=== PATIENT | female | born 1945 | race Caucasian/White ===

== ENCOUNTER → 2017-03-01 | Outpatient (CLI) | payer OTHER | LOC: FIMAGING 11:49 | DX: Z12.31 Encounter for screening mammogram for malignant neoplasm of breast (principal) | CPT/HCPCS: G0202 ==

== ENCOUNTER → 2017-07-02 | Outpatient (CLI) | payer OTHER | LOC: FIMAGING 08:05 | PROVIDERS: ATTEND Family Medicine Geriatric Medicine | DX: S92.325A Nondisplaced fracture of second metatarsal bone, left foot, initial encounter for closed fracture (principal) ==

== ENCOUNTER 2017-07-28 02:49 | Observation (INO) | payer OTHER ==
[2017-07-28] MEDS ORDERED: MAG HYDROX/AL HYDROX/SIMETH 30 ML UDCUP PO ONE ×2 (03:10→11:09)
[2017-07-28] MEDS ORDERED: LIDOCAINE 2% VISCOUS 15 ML UDCUP PO ONE ×2 (03:10→11:09)
--- NOTE | 2017-07-28 03:10 | EDPHY ---
H & P Time Seen by Provider: 07/28/17 02:52 HPI/ROS: Chief Complaint: Chest pain HPI: A 72-year-old woman woke up at 1:00 this morning with her usual chronic pain in her right foot from her RSD. Patient recalled that she did not take her gabapentin. She took 1800 mg of gabapentin in her metformin which is her usual evening dose. Shortly thereafter that she has developed some sternal chest discomfort. Come out an 8/10. It feels like "heartburn ". She did not take any heartburn medications for this. She does have a history of heartburn in the past. No shortness of breath. No palpitations. No nausea or vomiting. No abdominal pain. Currently the pain is about a 6/10 after nitroglycerin by EMS. Patient did refuse aspirin by EMS stating that she is allergic. Patient she did go swimming this evening after work which is not unusual for her. ROS: 10 point Review of Systems is negative except as noted in the HPI. PMH: Prediabetic, neuropathy, IBS Social History: No smoking, moderate alcohol, no recreational drug use Family History: non-contributory Physical Exam: Gen: Awake, Alert, No Distress HEENT: Nose: no rhinorrhea Eyes: PERRLA, EOMI Mouth: Moist mucosa Neck: Supple, no JVD Chest: Mild parasternal tenderness to palpation reproducing presenting complaint, lungs clear to auscultation Heart: S1, S2 normal, no murmur Abd: Soft, non-tender, no guarding Back: no CVA tenderness, no midline tenderness Ext: no edema, non-tender Skin: no rash Neuro: CN II-XII intact, Sensation grossly intact, Strength 5/5 in bilateral upper and lower extremities - Personal History Tetanus Vaccine Date: 05/04/2012 Constitutional: Initial Vital Signs Temperature (C) 36.5 C 07/28/17 03:03 Heart Rate 64 07/28/17 03:03 Respiratory Rate 16 07/28/17 03:03 Blood Pressure 115/68 07/28/17 03:03 O2 Sat (%) 96 07/28/17 03:03 O2 Delivery Mode Room Air Allergies/Adverse Reactions: amoxicillin [Amoxicillin] Allergy (Mild, Verified 05/01/13 15:09) Rash acetaminophen [From Percocet] Adverse Reaction (Verified 05/01/13 15:09) Abdominal Pain oxycodone HCl [From Percocet] Adverse Reaction (Verified 05/01/13 15:09) Abdominal Pain Medical Decision Making - Diagnostics EKG Interpretation: The ECG time 2:55 a.m., sinus rhythm with a rate of 63, normal axis, normal intervals, no acute ST or T-wave changes. There is a single PVC. ED Course/Re-evaluation: The pain is mildly improved after GI cocktail but has not resolved. Troponin is negative. ECG is negative. Pain is now to out of 10. Given her age in nature discomfort will admit her for serial troponins and chest pain rule out. I have discussed with the hospitalist, Dr.de Hutchins. He will admit to his service. - Data Points Laboratory Results: Laboratory Results 07/28/17 03:00 07/28/17 03:00 07/28/17 07/28/17 03:00 03:00 WBC 4.50 10^3/uL 10^3/uL (3.80-9.50) RBC 4.39 10^6/uL 10^6/uL (4.18-5.33) Hgb 13.3 g/dL g/dL (12.6-16.3) Hct 40.5 % % (38.0-47.0) MCV 92.3 fL fL (81.5-99.8) MCH 30.3 pg pg (27.9-34.1) MCHC 32.8 g/dL g/dL (32.4-36.7) RDW 14.2 % % (11.5-15.2) Plt Count 223 10^3/uL 10^3/uL (150-400) MPV 11.7 fL fL (8.7-11.7) Neut % (Auto) 41.3 % % (39.3-74.2) Lymph % (Auto) 33.3 % % (15.0-45.0) [place] % (Auto) 13.6 % H % (4.5-13.0) Eos % (Auto) 10.7 % H % (0.6-7.6) Baso % (Auto) 0.9 % % (0.3-1.7) Nucleat RBC Rel Count 0.0 % % (0.0-0.2) Absolute Neuts (auto) 1.86 10^3/uL 10^3/uL (1.70-6.50) Absolute Lymphs (auto) 1.50 10^3/uL 10^3/uL (1.00-3.00) Absolute Monos (auto) 0.61 10^3/uL 10^3/uL (0.30-0.80) Absolute Eos (auto) 0.48 10^3/uL H 10^3/uL (0.03-0.40) Absolute Basos (auto) 0.04 10^3/uL 10^3/uL (0.02-0.10) Absolute Nucleated RBC 0.00 10^3/uL 10^3/uL (0-0.01) Immature Gran % 0.2 % % (0.0-1.1) Immature Gran # 0.01 10^3/uL 10^3/uL (0.00-0.10) Sodium 138 mEq/L mEq/L (134-144) Potassium 4.1 mEq/L mEq/L (3.5-5.2) Chloride 100 mEq/L mEq/L (97-110) Carbon Dioxide 26 mEq/l mEq/l (22-31) Anion Gap 12 mEq/L mEq/L (8-16) BUN 12 mg/dL mg/dL (7-23) Creatinine 0.7 mg/dL mg/dL (0.6-1.0) Estimated GFR > 60 Glucose 84 mg/dL mg/dL (70-100) Calcium 9.8 mg/dL mg/dL (8.5-10.4) Troponin I < 0.012 ng/mL ng/mL (0.000-0.034) Medications Given: Discontinued Medications Al Hydroxide/Mg Hydroxide (Maalox Susp) 30 ml PO ONCE ONE Stop: 07/28/17 03:11 Last Admin: 07/28/17 03:15 Dose: 30 ml Lidocaine (Lidocaine 2% Viscous) 15 ml PO ONCE ONE Stop: 07/28/17 03:11 Last Admin: 07/28/17 03:15 Dose: 15 ml Departure - Departure Disposition: [facility] Inpatient Acute Clinical Impression: Chest pain Condition: Fair Referrals: Patient,NotPresent [Unknown] - As per Instructions
[2017-07-28 03:26] LABS: % IMMATURE GRANULYOCYTES 0.2 % (0.0-1.1); ABSOLUTE IMMATURE GRANULOCYTES 0.01 10^3/uL (0.00-0.10); ADD DIFF? NO; ADD MORPH? NO; ADD SCAN? NO; ATYPICAL LYMPHOCYTE FLAG 10 (0-99); FRAGMENT RBC FLAG 0 (0-99); HEMATOCRIT 40.5 % (38.0-47.0); HEMOGLOBIN 13.3 g/dL (12.6-16.3); LEFT SHIFT FLG 0 (0-99); LIPEMIA HEMOLYSIS FLAG 80 (0-99); MEAN CELL HEMOGLOBIN 30.3 pg (27.9-34.1); MEAN CELL HEMOGLOBIN CONCENTR. 32.8 g/dL (32.4-36.7); MEAN CELL VOLUME 92.3 fL (81.5-99.8); MEAN PLATELET VOLUME 11.7 fL (8.7-11.7); PLATELET CLUMPS FLAG 0 (0-99); PLATELET COUNT 223 10^3/uL (150-400); RED BLOOD CELL COUNT 4.39 10^6/uL (4.18-5.33); RED CELL DISTRIBUTION WIDTH 14.2 % (11.5-15.2)
[2017-07-28 03:32] LABS: ANION GAP 12 mEq/L (8-16); CALCIUM 9.8 mg/dL (8.5-10.4); CARBON DIOXIDE 26 mEq/l (22-31); CHLORIDE 100 mEq/L (97-110); CREATININE 0.7 mg/dL (0.6-1.0); GLOMERULAR FILTRATION RATE > 60; GLUCOSE 84 mg/dL (70-100); POTASSIUM 4.1 mEq/L (3.5-5.2); SODIUM 138 mEq/L (134-144)
[2017-07-28 03:44] LABS: TROPONIN I < 0.012 ng/mL (0.000-0.034)
--- NOTE | 2017-07-28 04:58 | CPEKG ---
Heart Rate: 63 RR Interval: 952 P-R Interval: 156 QRSD Interval: 90 QT Interval: 428 QTC Interval: 439 P Wetmore: 56 QRS Wetmore: 45 T Wave Wetmore: 59 EKG Severity - OTHERWISE NORMAL ECG - EKG Impression: SINUS RHYTHM EKG Impression: VENTRICULAR PREMATURE COMPLEX Electronically Signed By: Macario Proctor 28-Jul-2017 06:26:08
[2017-07-28] MEDS ORDERED: ACETAMINOPHEN 325 MG TAB PO PRN (05:10)
[2017-07-28] MEDS ORDERED: ONDANSETRON 4 MG/2 ML VIAL IVP PRN (05:10)
[2017-07-28] MEDS ORDERED: ONDANSETRON DISINTEGRATING 4 MG TAB PO PRN (05:10)
--- NOTE | 2017-07-28 06:14 | PDGENHP ---
History and Physical - Chief Complaint Chest pain - History of Present Illness 72 yo F w/ pre-DM and RSD presents w/ chest pain. Patient was sleeping today and noticed her usual pain in the L ankle. She thinks she forgot to take her nighttime meds so she got up and took metformin and 6 tabs of gabapentin. Shortly after this she noted severe lower, central chest pain. There was no radiation or associated symptoms. There was no relation to exertion. She thinks she may have noted similar symptoms in the past and does have a hx of GERD. Of note, she is very active and swims 1 mile three times weekly. She does not experience any chest pain during her exercise routine. History Information - Allergies/Home Medication List Allergies/Adverse Reactions: amoxicillin [Amoxicillin] Allergy (Mild, Verified 05/01/13 15:09) Rash acetaminophen [From Percocet] Allergy (Verified 07/28/17 05:48) Abdominal Pain oxycodone HCl [From Percocet] Allergy (Verified 07/28/17 05:48) Abdominal Pain I have personally reviewed and updated: family history, medical history - Past Medical History asthma Additional medical history: pre-DM - Surgical History Additional surgical history: L ankle surgeries - Family History Positive for: diabetes type II - Social History Smoking Status: Never smoked Alcohol Use: None Drug Use: None Review of Systems Review of Systems: ROS: 10pt was reviewed & negative except for what was stated in HPI & below Physical Exam Physical Exam: Temp Pulse Resp BP Pulse Ox 36.5 C 66 16 123/74 H 96 07/28/17 03:03 07/28/17 04:00 07/28/17 04:00 07/28/17 04:00 07/28/17 04:00 Constitutional: no apparent distress, appears nourished Eyes: PERRL, EOMI Ears, Nose, Mouth, Throat: moist mucous membranes, no oral mucosal ulcers Cardiovascular: regular rate and rhythym, no murmur, rub, or gallop Respiratory: no respiratory distress, clear to auscultation Gastrointestinal: normoactive bowel sounds, soft, non-tender abdomen Skin: warm, normal color Musculoskeletal: full muscle strength, no muscle tenderness Neurologic: AAOx3, CN II-XII Intact Psychiatric: interacting appropriately, not anxious Lab Data & Imaging Review 07/28/17 03:00 07/28/17 03:00 WBC 4.50 10^3/uL (3.80-9.50) 07/28/17 03:00 RBC 4.39 10^6/uL (4.18-5.33) 07/28/17 03:00 Hgb 13.3 g/dL (12.6-16.3) 07/28/17 03:00 Hct 40.5 % (38.0-47.0) 07/28/17 03:00 MCV 92.3 fL (81.5-99.8) 07/28/17 03:00 MCH 30.3 pg (27.9-34.1) 07/28/17 03:00 MCHC 32.8 g/dL (32.4-36.7) 07/28/17 03:00 RDW 14.2 % (11.5-15.2) 07/28/17 03:00 Plt Count 223 10^3/uL (150-400) 07/28/17 03:00 MPV 11.7 fL (8.7-11.7) 07/28/17 03:00 Neut % (Auto) 41.3 % (39.3-74.2) 07/28/17 03:00 Lymph % (Auto) 33.3 % (15.0-45.0) 07/28/17 03:00 [place] % (Auto) 13.6 % (4.5-13.0) H 07/28/17 03:00 Eos % (Auto) 10.7 % (0.6-7.6) H 07/28/17 03:00 Baso % (Auto) 0.9 % (0.3-1.7) 07/28/17 03:00 Nucleat RBC Rel Count 0.0 % (0.0-0.2) 07/28/17 03:00 Absolute Neuts (auto) 1.86 10^3/uL (1.70-6.50) 07/28/17 03:00 Absolute Lymphs (auto) 1.50 10^3/uL (1.00-3.00) 07/28/17 03:00 Absolute Monos (auto) 0.61 10^3/uL (0.30-0.80) 07/28/17 03:00 Absolute Eos (auto) 0.48 10^3/uL (0.03-0.40) H 07/28/17 03:00 Absolute Basos (auto) 0.04 10^3/uL (0.02-0.10) 07/28/17 03:00 Absolute Nucleated RBC 0.00 10^3/uL (0-0.01) 07/28/17 03:00 Immature Gran % 0.2 % (0.0-1.1) 07/28/17 03:00 Immature Gran # 0.01 10^3/uL (0.00-0.10) 07/28/17 03:00 Sodium 138 mEq/L (134-144) 07/28/17 03:00 Potassium 4.1 mEq/L (3.5-5.2) 07/28/17 03:00 Chloride 100 mEq/L (97-110) 07/28/17 03:00 Carbon Dioxide 26 mEq/l (22-31) 07/28/17 03:00 Anion Gap 12 mEq/L (8-16) 07/28/17 03:00 BUN 12 mg/dL (7-23) 07/28/17 03:00 Creatinine 0.7 mg/dL (0.6-1.0) 07/28/17 03:00 Estimated GFR > 60 07/28/17 03:00 Glucose 84 mg/dL (70-100) 07/28/17 03:00 Calcium 9.8 mg/dL (8.5-10.4) 07/28/17 03:00 Troponin I < 0.012 ng/mL (0.000-0.034) 07/28/17 03:00 Visualized and Interpreted EKG results: Yes EKG Interpretation: Positive for: normal sinsus rhythm, NS ST wave abnormalities Assessment & Plan Assessment: 72 yo F w/ pre-DM and RSD presents with chest pain. Plan: 1. Chest pain - Quite atypical in that pain started shortly after taking 7 pills. It seems most likely this is GI related noting pill burden. However, noting age and pre-DM, ACS rule-out seems reasonable. Trop and ECG unremarkable on admission. Of note, she swims 1 mile three times weekly without chest discomfort. - Monitor on telemetry - Trend serial enzymes - If negative, likely appropriate for outpatient stress test 2. Pre-DM - Takes metformin daily 3. RSD - As a result of multiple L ankle surgeries. Takes gabapentin 600/1800 AM /PM. Diet - Regular, caffeine free Code - Full Ppx - LMWH Dispo - Admit to observation status
[2017-07-28 08:00] VITALS: RESP 17
[2017-07-28] MEDS ORDERED: ENOXAPARIN 40 MG/0.4 ML SYR SC SCH (09:00)
[2017-07-28] MEDS ORDERED: HYOSCYAMINE SULFATE 0.125 MG TAB PO ONE (11:09)
[2017-07-28] MEDS ORDERED: FAMOTIDINE 20 MG TAB PO SCH (11:15)
[2017-07-28] MEDS ORDERED: FLU VACC QS 2017-18 (3YR+)/PF 0.5 ML SYR (FLUARIX QUAD) IM ONE (12:01)
[2017-07-28 12:26] VITALS: BP 135/82; PULSE 67; TEMP 97.8; O2SAT 94
--- NOTE | 2017-07-28 17:19 | ASDISCHSUM ---
Discharge Information Plan Status:Home with No Needs Medically Cleared to Leave:07/28/2017 Discharge Date:07/28/2017 04:25 PM CM D/C Disposition:Home, Routine, Self-Care ADT D/C Disposition:Home, Routine, Self-Care Projected Discharge Date:07/28/2017 04:25 PM Transportation at D/C:Family Discharge Delay Reason: Follow-Up Date:07/28/2017 04:25 PM Discharge Slot: Final Diagnosis:CP, pre-DM Placement Information Patient Contact Information Contact Name:APRYL Relationship:Daughter Address: Work Phone: City: [place] Phone: State/Zip Code: Email: Financial Information Financial Class:Medicare Advantage Plans Primary Plan Desc:[facility] ADVANTAGE PLAN Primary Plan Number:[id number] Secondary Plan Desc: Secondary Plan Number: Assessment Information [facility] CM Progress Note CM Note CM Note Notes: Reviewed chart re: d/c poc, pt's progress. Pt admitted for CP, likely r/t GERD. Pt to discharge home independently w/ no identified needs. IM not signed, pt admission <24 hrs. Pt to f/u as directed. CM avail for any further issues or concerns. Date Signed: 07/28/2017 05:18 PM Electronically Signed By:Soni Parker RN Intervention Information
--- NOTE | 2017-07-28 20:49 | GDS ---
[f rep st] DISCHARGE SUMMARY DISCHARGE DIAGNOSES: 1. Chest pain, likely noncardiac; gastrointestinal etiology is suspected. 2. Gastroesophageal reflux disease. 3. Prediabetes. 4. Peripheral neuropathy, on very large dose of gabapentin. HISTORY: For details, please see the history and physical dated July 28. In brief, the patient is a 72-year-old female who reports a history of gastroesophageal reflux disease, who presents to the emergency department with burning substernal chest pain. She apparently woke in the middle of the n ight last night, could not remember if she had taken her 6 tablets of gabapentin. She took all these at once and then laid down. She then developed a burning discomfort radiating throughout her chest and she called the ambulance, where she was brought to the emergency department. She was admitted to the hospital for further evaluation. HOSPITAL COURSE: The patient was admitted to the cardiac telemetry unit. She had serial negative tr oponins. Her EKG is nonischemic. Further history reveals severe acid reflux symptoms and her sympto m pattern is certainly consistent with this. I query if she may have developed a pill esophagitis gi villa her rather large pill burden, taking 6 tablets of gabapentin at once. She was able to tolerate a full diet. She has had no vomiting. She denies any dysphagia or odynophagia. Her symptoms were im proved with a GI cocktail and IV Pepcid. She is deemed safe for discharge home and is chest pain-julián e at the time of discharge. DISPOSITION: Patient is discharged home in stable condition. FOLLOWUP: She is to follow up with her primary care physician. She is also referred to Dr. Pietro escamilla of [facility] for outpatient cardiac stress testing. DISCHARGE MEDICATIONS: Please see [email or web address] for completed outpatient medication list. New medication s on discharge include omeprazole 20 mg p.o. daily, #30, no refills; Pepcid 20 mg p.o. twice daily, # 60, no refills; and sucralfate 1000 mg p.o. four times daily. I also recommended she consider a diff erent strength of the Neurontin. It is noted that 1800 mg at a time is a rather large dose and with her 300 mg strength tablets she has to take 6 pills at once to achieve this dose. She may do better with a higher strength medication and possibly even decreasing her dose to 900 or 1200 mg at bedtime. We reviewed with her to take her antacid 2 hours after the Neurontin to ensure its effectiveness. /[id number]/MODL
== END 2017-07-28 16:25 | disposition home or self-care (01) ==
LOC: EDUNIT# → F2W 07:53
PROVIDERS: ADMIT Student in an Organized Health Care Education/Training Program; ATTEND Hospitalist
DX: R07.89 Other chest pain (principal); K21.9 Gastro-esophageal reflux disease without esophagitis; R73.03 Prediabetes; G62.9 Polyneuropathy, unspecified; Z23 Encounter for immunization
CPT/HCPCS: 71020; 90686; 93005; G0008; G0378; J1650

== ENCOUNTER 2017-12-15 11:37 | Observation (INO) | payer OTHER ==
--- NOTE | 2017-12-15 11:53 | CPEKG ---
Heart Rate: 58 RR Interval: 1034 P-R Interval: 148 QRSD Interval: 86 QT Interval: 476 QTC Interval: 468 P Hobbs: 60 QRS Hobbs: 34 T Wave Hobbs: 62 EKG Severity - BORDERLINE ECG - EKG Impression: SINUS RHYTHM EKG Impression: LOW VOLTAGE IN FRONTAL LEADS EKG Impression: BORDERLINE R WAVE PROGRESSION, ANTERIOR LEADS Electronically Signed By: Fox Collins 15-Dec-2017 12:20:35
--- NOTE | 2017-12-15 11:53 | EDPHY ---
H & P Time Seen by Provider: 12/15/17 11:52 HPI/ROS: CHIEF COMPLAINT: Syncope x2 HISTORY OF PRESENT ILLNESS: Patient was feeling well when she woke up today. She had coffee yogurt and fruit and then the next thing she knew she was face down on the floor for kitchen. She had watching television did not have any prodrome for this syncope. She got up and proceeded to continue to try go about her day and then ended on the floor again without any warning or prodrome. She had her forehead on the floor and has a little bit of a headache. This was not associated with chest pain or shortness of breath. She does now have a diffuse red itchy rash and received Benadryl by EMS EN route. REVIEW OF SYSTEMS: Eye: no change in vision ENT: no sore throat Cardiac: No chest pain Pulmonary: no cough or SOB Abdomen: no vomiting, diarrhea, abdominal pain Musculoskeletal: no back pain Skin: HPI Neuro: no headache Constitutional: no fever : no urinary symptoms A comprehensive 10 point review of systems is otherwise negative aside from elements mentioned in the history of present illness. PAST MEDICAL HISTORY: Diabetes and reflux, asthma Social history: Nonsmoker General Appearance: Alert and conversant, cooperative. Eyes: No scleral icterus. Extraocular motion intact and pupils equal round reactive. ENT, Mouth: Normal mucous membranes. No tongue laceration or abrasion. Respiratory: Normal respiratory effort, breath sounds equal, lungs are clear to auscultation. Cardiovascular: Regular rate and rhythm. Gastrointestinal: Abdomen is soft and non tender. Neurological: Alert, face symmetric, normal motor and sensory in extremities. Skin: Diffuse urticaria. Musculoskeletal: No cervical thoracic or lumbar spine tenderness to palpation and no extremity tenderness. Swelling on her forehead. Psychiatric: Not agitated. Emergency Department course/MDM: Cervical spine clinically cleared. It is possible she had distributive process related to urticaria and syncope from that but also have concern for malignant dysrhythmia given no prodrome. 0.15 mg epinephrine IM and 125 mg Solu-Medrol IV. Normal saline [address] scanning with headache and trauma at age 72. Cervical spine cleared clinically. Plan to admit for cardiac monitoring, treatment of anaphylaxis, IV fluids. 1228: Noncontrast head CT personally interpreted as negative. Smoking Status: Never smoked Constitutional: Initial Vital Signs Temperature (C) 36.4 C 12/15/17 11:48 Heart Rate 62 12/15/17 11:48 Respiratory Rate 14 12/15/17 11:48 Blood Pressure 114/69 12/15/17 11:48 O2 Sat (%) 92 12/15/17 11:48 O2 Delivery Mode Room Air Allergies/Adverse Reactions: amoxicillin [Amoxicillin] Allergy (Mild, Verified 05/01/13 15:09) Rash acetaminophen [From Percocet] Allergy (Verified 07/28/17 05:48) Abdominal Pain aspirin Allergy (Verified 07/28/17 07:33) oxycodone HCl [From Percocet] Allergy (Verified 07/28/17 05:48) Abdominal Pain Home Medications: Medication Instructions Recorded Gabapentin [Neurontin 300 MG (*)] 1,800 mg PO HS 07/28/17 Gabapentin [Neurontin 300 MG (*)] 600 mg PO DAILY 07/28/17 Herbals/Supplements -Info Only 1 ea PO DAILY 07/28/17 Multivitamins [Multivitamin (*)] 1 each PO DAILY 07/28/17 metFORMIN HCL [Glucophage 500 mg 500 mg PO BIDMEAL 07/28/17 (*)] Medical Decision Making - Diagnostics EKG Interpretation: 12-lead EKG interpreted by me; official reading is in trace master. My interpretation is sinus rhythm with late anterior RS transition Imaging Results: Imaging Impressions Head CT 12/15/17 12:02 Impression: 1. Mild cerebral atrophy. 2. No epidural or subdural hematoma. 3. No skull fracture. Findings and recommendations discussed with emergency department physician, Fox Collins MD at 1252 hours on December 15, 2017. Final report concurs with initial preliminary interpretation. Negative head CT reviewed with Dr. Corbin [id number]. Imaging: I viewed and interpreted images myself Consult/Admit Bed Type: [place] [address] Critical Care Time: Critical care time spent by me, Dr. Collins, exclusively with the care of this patient was 30 minutes, exclusive of PA or ACCOUNT[employer] MACHINE [employer]ESSING time and exclusive of separate procedures. The organ system at risk was allergic/cardiovascular and I ordered epinephrine, Solu-Medrol, IV fluids, cardiac monitoring to stabilize the patient and prevent worsening of the patient's condition. - Data Points Laboratory Results: Laboratory Results 12/15/17 11:45 12/15/17 11:45 12/15/17 12/15/17 12/15/17 11:45 11:45 11:45 WBC 13.12 10^3/uL H 10^3/uL (3.80-9.50) RBC 4.87 10^6/uL 10^6/uL (4.18-5.33) Hgb 14.6 g/dL g/dL (12.6-16.3) Hct 43.9 % % (38.0-47.0) MCV 90.1 fL fL (81.5-99.8) MCH 30.0 pg pg (27.9-34.1) MCHC 33.3 g/dL g/dL (32.4-36.7) RDW 14.2 % % (11.5-15.2) Plt Count 273 10^3/uL 10^3/uL (150-400) MPV 11.7 fL fL (8.7-11.7) Neut % (Auto) 85.5 % H % (39.3-74.2) Lymph % (Auto) 8.2 % L % (15.0-45.0) [place] % (Auto) 5.0 % % (4.5-13.0) Eos % (Auto) 0.6 % % (0.6-7.6) Baso % (Auto) 0.2 % L % (0.3-1.7) Nucleat RBC Rel Count 0.0 % % (0.0-0.2) Absolute Neuts (auto) 11.20 10^3/uL H 10^3/uL (1.70-6.50) Absolute Lymphs (auto) 1.08 10^3/uL 10^3/uL (1.00-3.00) Absolute Monos (auto) 0.66 10^3/uL 10^3/uL (0.30-0.80) Absolute Eos (auto) 0.08 10^3/uL 10^3/uL (0.03-0.40) Absolute Basos (auto) 0.03 10^3/uL 10^3/uL (0.02-0.10) Absolute Nucleated RBC 0.00 10^3/uL 10^3/uL (0-0.01) Immature Gran % 0.5 % % (0.0-1.1) Immature Gran # 0.07 10^3/uL 10^3/uL (0.00-0.10) Sodium 136 mEq/L mEq/L (135-145) Potassium 4.1 mEq/L mEq/L (3.5-5.2) Chloride 101 mEq/L mEq/L (97-110) Carbon Dioxide 20 mEq/l L mEq/l (22-31) Anion Gap 15 mEq/L mEq/L (8-16) BUN 15 mg/dL mg/dL (7-23) Creatinine 1.0 mg/dL mg/dL (0.6-1.0) Estimated GFR 55 Glucose 115 mg/dL H mg/dL (70-100) Calcium 10.1 mg/dL mg/dL (8.5-10.4) Troponin I < 0.012 ng/mL ng/mL (0.000-0.034) Prolactin 37.5 ng/mL H ng/mL (3.0-18.6) Medications Given: Discontinued Medications Epinephrine HCl (Epinephrine) 0.15 mg IM EDNOW ONE Stop: 12/15/17 12:03 Last Admin: 12/15/17 12:08 Dose: 0.15 mg Sodium Chloride (Ns) 1,000 mls @ 0 mls/hr IV EDNOW ONE; Wide Open PRN Reason: Protocol Stop: 12/15/17 12:03 Last Admin: 12/15/17 12:08 Dose: 1,000 mls Dextrose/Sodium Chloride (D5w 1/2 Ns) 1,000 mls @ 100 mls/hr IV CONT CAM Stop: 06/13/18 12:59 Last Admin: 12/15/17 13:40 Dose: 1,000 mls Methylprednisolone Sodium Succinate (Solu-Medrol) 125 mg IVP EDNOW ONE Stop: 12/15/17 12:03 Last Admin: 12/15/17 12:07 Dose: 125 mg Departure - Departure Disposition: [facility] Inpatient Acute Clinical Impression: Anaphylaxis Qualifiers: Encounter type: initial encounter Qualified Code(s): T78.2XXA - Anaphylactic shock, unspecified, initial encounter Syncope Qualifiers: Syncope type: unspecified Qualified Code(s): R55 - Syncope and collapse Condition: Fair
[2017-12-15] MEDS ORDERED: NS 1,000 ML IV ONE (12:02)
[2017-12-15] MEDS ORDERED: methylPREDNISolone SOD SUCC 125 MG/2 ML VIAL IVP ONE (12:02)
[2017-12-15 12:19] LABS: PLATELET COUNT 273 10^3/uL (150-400)
[2017-12-15] MEDS ORDERED: D5W 1/2 NS 1,000 ML IV SCH (13:00)
--- NOTE | 2017-12-15 14:23 | PDGENHP ---
History and Physical - Chief Complaint Acute syncope - History of Present Illness 72-year-old female presenting with acute syncope characterized as statin, complete loss of consciousness with associated traumatic fall, onset of symptoms on the morning of presentation after eating breakfast, immediately after she stood to walk to the sink. She denies experiencing any prodrome will symptoms and she regained consciousness lying face down on the floor. She reports some anterior head trauma and some resultant associated headache. She got back up to her feet and was experiencing generalized weakness, then experienced recurrent loss of consciousness and fell to the floor again. When she awoke on the floor, she had some pain located her left elbow, and she began noted pruritus and rash located in her bilateral hands and bilateral feet. She contacted EMS, received either epinephrine or Benadryl EN route, and noted expansion of her rash from her hands and feet upper legs upper arms, characterized as red and diffuse. She received Solu-Medrol, normal saline, epinephrine in the emergency department, and much of the rash was alleviated, localizing then to adjust her hands and feet. She has never experienced symptoms like this before. The patient reports taking all of her home medications on the morning of presentation, including probiotics. Prior to her onset of symptoms, the patient had been feeling some sinus congestion as well as fatigue, which had began the evening prior to presentation after she worked two 10 hr shifts. She reports that she is normally very physically active and on the day prior to this presentation, she had hiked and did not experience any chest pain shortness of breath or palpitations. History Information - Allergies/Home Medication List Allergies/Adverse Reactions: amoxicillin [Amoxicillin] Allergy (Mild, Verified 05/01/13 15:09) Rash acetaminophen [From Percocet] Allergy (Verified 07/28/17 05:48) Abdominal Pain aspirin Allergy (Verified 07/28/17 07:33) oxycodone HCl [From Percocet] Allergy (Verified 07/28/17 05:48) Abdominal Pain Home Medications: Gabapentin [Neurontin 300 MG (*)] 1,800 mg PO HS 07/28/17 [Last Taken 12/14/17] Gabapentin [Neurontin 300 MG (*)] 600 mg PO DAILY 07/28/17 [Last Taken 12/15/17] Herbals/Supplements -Info Only 1 ea PO DAILY 07/28/17 [Last Taken Unknown] Multivitamins [Multivitamin (*)] 1 each PO DAILY 07/28/17 [Last Taken 12/15/17] metFORMIN HCL [Glucophage 500 mg (*)] 500 mg PO BIDMEAL 07/28/17 [Last Taken ] I have personally reviewed and updated: family history, medical history, social history, surgical history - Past Medical History asthma (Exercise induced), GERD Additional medical history: 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, RSD - Surgical History Additional surgical history: L ankle surgeries - Family History Positive for: diabetes type II Additional family history: Generations of asthma - Social History Smoking Status: Never smoked Alcohol Use: None Drug Use: None Additional social history: Very physically active, swims, hikes, yoga Review of Systems Review of Systems: ROS: 10pt was reviewed & negative except for what was stated in HPI & below Constitutional: Reports: weakness Skin: Reports: rash, other (pruritis) Neurological: Reports: other (Fatigue) Physical Exam Physical Exam: Temp Pulse Resp BP Pulse Ox 36.4 C 62 18 128/67 H 95 12/15/17 11:48 12/15/17 13:23 12/15/17 13:23 12/15/17 13:23 12/15/17 13:23 Constitutional: no apparent distress, appears nourished, not in pain Eyes: PERRL, anicteric sclera, EOMI Ears, Nose, Mouth, Throat: moist mucous membranes, hearing normal, ears appear normal, no oral mucosal ulcers Cardiovascular: regular rate and rhythym, no murmur, rub, or gallop, No carotid bruit, No edema Respiratory: no respiratory distress, no rales or rhonchi, clear to auscultation , No expiratory wheeze, No respiratory distress Gastrointestinal: normoactive bowel sounds, soft, non-tender abdomen, no palpable masses, No distension Genitourinary: other (Bladder is full but nontender) Skin: other (Blanchable erythema bilateral dorsal hand surfaces, bile dorsum of feet, soft tissue edema over the dorsum of the hands, small areas of streaking erythema upper back) Neurologic: AAOx3, sensation intact bilaterally, No weakness, No facial droop Psychiatric: interacting appropriately, not anxious, not encephalopathic, thought process linear Lab Data & Imaging Review 12/15/17 11:45 12/15/17 11:45 WBC 13.12 10^3/uL (3.80-9.50) H 12/15/17 11:45 RBC 4.87 10^6/uL (4.18-5.33) 12/15/17 11:45 Hgb 14.6 g/dL (12.6-16.3) 12/15/17 11:45 Hct 43.9 % (38.0-47.0) 12/15/17 11:45 MCV 90.1 fL (81.5-99.8) 12/15/17 11:45 MCH 30.0 pg (27.9-34.1) 12/15/17 11:45 MCHC 33.3 g/dL (32.4-36.7) 12/15/17 11:45 RDW 14.2 % (11.5-15.2) 12/15/17 11:45 Plt Count 273 10^3/uL (150-400) 12/15/17 11:45 MPV 11.7 fL (8.7-11.7) 12/15/17 11:45 Neut % (Auto) 85.5 % (39.3-74.2) H 12/15/17 11:45 Lymph % (Auto) 8.2 % (15.0-45.0) L 12/15/17 11:45 [place] % (Auto) 5.0 % (4.5-13.0) 12/15/17 11:45 Eos % (Auto) 0.6 % (0.6-7.6) 12/15/17 11:45 Baso % (Auto) 0.2 % (0.3-1.7) L 12/15/17 11:45 Nucleat RBC Rel Count 0.0 % (0.0-0.2) 12/15/17 11:45 Absolute Neuts (auto) 11.20 10^3/uL (1.70-6.50) H 12/15/17 11:45 Absolute Lymphs (auto) 1.08 10^3/uL (1.00-3.00) 12/15/17 11:45 Absolute Monos (auto) 0.66 10^3/uL (0.30-0.80) 12/15/17 11:45 Absolute Eos (auto) 0.08 10^3/uL (0.03-0.40) 12/15/17 11:45 Absolute Basos (auto) 0.03 10^3/uL (0.02-0.10) 12/15/17 11:45 Absolute Nucleated RBC 0.00 10^3/uL (0-0.01) 12/15/17 11:45 Immature Gran % 0.5 % (0.0-1.1) 12/15/17 11:45 Immature Gran # 0.07 10^3/uL (0.00-0.10) 12/15/17 11:45 Sodium 136 mEq/L (135-145) 12/15/17 11:45 Potassium 4.1 mEq/L (3.5-5.2) 12/15/17 11:45 Chloride 101 mEq/L (97-110) 12/15/17 11:45 Carbon Dioxide 20 mEq/l (22-31) L 12/15/17 11:45 Anion Gap 15 mEq/L (8-16) 12/15/17 11:45 BUN 15 mg/dL (7-23) 12/15/17 11:45 Creatinine 1.0 mg/dL (0.6-1.0) 12/15/17 11:45 Estimated GFR 55 12/15/17 11:45 Glucose 115 mg/dL (70-100) H 12/15/17 11:45 Calcium 10.1 mg/dL (8.5-10.4) 12/15/17 11:45 Troponin I < 0.012 ng/mL (0.000-0.034) 12/15/17 11:45 Prolactin 37.5 ng/mL (3.0-18.6) H 12/15/17 11:45 Visualized and Interpreted EKG results: Yes EKG Interpretation: Positive for: normal sinsus rhythm (No ST changes) Assessment & Plan Assessment: 72-year-old female presents with acute syncope in the setting of suspected anaphylactic reaction Plan: 1. Syncope. Acute, new problem this provider, further workup indicated. Most likely secondary to orthostatic hypotension in the setting of anaphylactic reaction -reviewed outside records from 07/28/[address] Sathya Mckinney , patient's chest pain presentation most likely secondary to GERD, ruled out for acute coronary syndrome with negative troponin x3 -monitor for arrhythmia on telemetry -monitor for any unmasked valvular abnormalities with echocardiogram, unmasked vascular stenosis with carotid and vertebral ultrasounds -checked orthostatics, normal -ensure these were not unwitnessed seizure episodes, given elevated prolactin level, metabolic acidosis, get lactic acid level, CPK, monitor 2. Suspected anaphylactic reaction. Evidenced by pruritis, rash, suspected hypotension, unclear precipitant, responded favorably to epinephrine, Solu- Medrol, Benadryl -monitor for recurrence -reintroduced patient's regular home medications and ensure none of them are the precipitant, patient feels like she needs these medications for her neuropathy -counseled the patient and advised her that an outpatient allergy test may be appropriate, will provide her with outpatient recommendations -continue scheduled Benadryl, scheduled famotidine, hold steroids unless worsening 3. Metabolic acidosis. Acute, likely secondary to hypoperfusion in the setting of suspected hypotension and anaphylactic reaction, status post IV fluids in ED -repeat serum chemistry in a.m. 4. Exercise induced asthma. No evidence of acute exacerbation, continue as needed ProAir Diet. Regular Prophylaxis. High risk patient, Lovenox Code. Full Disposition. Anticipated discharge is 12/16, pending further workup as outlined above. Discussed with Chayo Washington, hospitalist provider, she is signed out the patient to me for evaluation, conveyed to me the patient's presentation.
[2017-12-15] MEDS: metFORMIN HCL 500 MG TAB PO SCH (18:20)
[2017-12-15 18:43] LABS: CREATINE KINASE 79 IU/L (0-156)
[2017-12-15] MEDS ORDERED: PANTOPRAZOLE SODIUM 40 MG TAB PO PRN (20:17)
[2017-12-15] MEDS: FAMOTIDINE 20 MG/NACL 50 ML IV SCH (20:33)
[2017-12-15] MEDS ORDERED: GABAPENTIN 300 MG CAP PO SCH (21:00)
[2017-12-16 04:42] LABS: PLATELET COUNT 213 10^3/uL (150-400)
[2017-12-16 04:51] VITALS: O2SAT 94
[2017-12-16] MEDS: metFORMIN HCL 500 MG TAB PO SCH (08:37)
[2017-12-16] MEDS: FAMOTIDINE 20 MG/NACL 50 ML IV SCH (08:39)
[2017-12-16] MEDS ORDERED: Herbals/Supplements -Info Only PO SCH (09:00)
[2017-12-16] MEDS ORDERED: GABAPENTIN 300 MG CAP PO SCH (09:00)
[2017-12-16] MEDS ORDERED: ENOXAPARIN 40 MG/0.4 ML SYR SC SCH (09:00)
[2017-12-16] MEDS ORDERED: MULTIVITAMINS 1 EACH TAB PO SCH (09:00)
[2017-12-16 09:54] VITALS: PULSE 68; RESP 12; TEMP 98.4
--- NOTE | 2017-12-16 10:46 | ECHO ---
[email or web address] [address] [address] Main: [phone] Fax: Transthoracic Echocardiogram Name: ROSALINO GUSMAN MR#: [id number] Study Date: 12/16/2017 Study Time: 08:02 AM Date of : 1945 Age: 72 year(s) Height: 162.6 cm (64 in.) Weight: 52.16 kg (115 lb.) BSA: 1.55 m2 Gender: Female Examination: Echo Indication: Cardiac: syncope Image Quality: Contrast: Requested by: Peter Casas BP: 112 mmHg/80 mmHg Heart Rate: Rhythm: Normal sinus rhythm Indication: Cardiac: syncope Procedure Staff Recreational Sports Director: Sreekanth Monge RDCS Reading Physician: Faisal Starr Requesting Provider: Conclusions: Normal global systolic LV function. The interatrial septum is aneuysmal with no evidence of a PFO by colorflow doppler.. Mild mitral valve regurgitation is present. The tricuspid valve is normal in appearance and function. Measurements: Chambers Valvular Assessment AV/MV Valvular Assessment TV/PV Normal Normal Normal Name Value Range Name Value Range Name Value Range Ao Bree (MM): 3.0 cm (2.2 cm-3.7 AV Vmax: 1.09 m/s (1 m/s-1.7 TR Vmax: 2.82 mm/s ( - ) cm) m/s) TR PGmax: 32 mmHg ( - ) IVSd (2D): 0.8 cm (0.6 cm-1.1 AV maxP mmHg ( - ) syst. PAP: 37 mmHg ( - ) cm) LVOT Vmax: 0.78 m/s (0.7 m/s-1.1 PV Vmax: 0.60 m/s (0.6 m/s-0.9 LVDd (2D): 4.5 cm (3.9 cm-5.3 m/s) m/s) cm) MV E Vmax: 0.80 m/s ( - ) PV PGmax: 1 mmHg ( - ) LVDs (2D): 2.8 cm (2.1 cm-4 MV A Vmax: 0.85 m/s ( - ) cm) MV E/A: 0.94 ( - ) LVPWd (2D): 1.1 cm ( - ) LVEF (2D): 66 (>=54 %) Continued Measurements: Chambers Valvular Assessment TV/PV Name Value Name Value LADs Lon.0 cm CVP (est.): 5 mmHg LA Area: 13.7 cm2 LA Volume: 36 ml LA Volume Index: 23.2 ml/m2 Patient: ROSALINO GUSMAN Study Date: 12/16/2017 Page 1 of 2 08:02 AM Findings: Left Ventricle: Normal size left ventricle. Normal global systolic LV function. EF is 66 %. No regional wall motion abnormality. Right Ventricle: Normal size right ventricle. Normal RV function. Left Atrium: The left atrium is normal in size. The interatrial septum is aneuysmal with no evidence of a PFO by colorflow doppler.. Right Atrium: The right atrium is normal in size. Mitral Valve: The mitral valve is normal in appearance. Mild mitral valve regurgitation is present. Aortic Valve: The aortic valve is tri-leaflet. The aortic valve is normal in appearance. Tricuspid Valve: The tricuspid valve is normal in appearance and function. Pulmonic Valve: The pulmonic valve is normal in appearance and function. Aorta: The aorta is normal. Pericardium: No pericardial effusion. (No Signature Object) Patient: ROSALINO GUSMAN Study Date: 12/16/2017 Page 2 of 2 08:02 AM [id number]
[2017-12-16 12:05] VITALS: BP 127/71
--- NOTE | 2017-12-16 13:45 | PDDCSUM ---
Discharge Summary Discharge Summary: DISCHARGE SUMMARY FOLLOW-UP ITEMS: Outpatient allergy testing Repeat prolactin level as an outpatient DATE OF ADMISSION: 12/15/2017 DATE OF DISCHARGE: 12/16/2017 DISCHARGE DIAGNOSES: 1. Suspected anaphylaxis 2. Acute syncope 3. Acute metabolic acidosis CONSULTATIONS: None PROCEDURES / IMAGING: Echocardiogram demonstrating normal ejection fraction, mild mitral regurgitation , no other valvular abnormalities Carotid ultrasounds demonstrating normal carotid and vertebral arteries CHIEF COMPLAINT: Acute syncope SUBJECTIVE: Patient is feeling well at time discharge, she has not had any recurrent episodes of lightheadedness, loss of consciousness, her rash on her hands and feet has resolved PHYSICAL EXAM ON DISCHARGE: Systolic blood pressure is 112, heart rate 70, afebrile overnight, satting well on room air, alert awake oriented x3, no apparent distress, pain level 0/10, rash has completely resolved on the dorsum of her bilateral hands, is faint on the palmar surface of her left hand, has resolved on her bilateral feet and legs LABS ON DISCHARGE: CPK normal, troponin normal, lactic normal, serum bicarbonate 28, potassium 5, creatinine 0.8, white blood count 7800, hemoglobin 11, respiratory viral panel normal, prolactin level 37.5, TSH 1.2 HOSPITAL COURSE BY PROBLEM: 1. Suspected anaphylaxis. Evidenced by pruritus, rash, suspected hypotension, all of which occurred concomitantly and resulted in her 2 syncopal episodes. The exact precipitant is unclear, although the patient resports that she consumed morena on the morning of presentation and this the 1st time that she has had a morena in 5 years. Otherwise, she had not changed any of her medications or consumed any other unusual foods. The patient responded favorably to epinephrine, IV steroids, scheduled Benadryl, scheduled H2 sahara. The patient was observed overnight to ensure no recurrence and we administered her home medications to ensure that none of them with a precipitant. The patient did not experience any recurrence of her symptoms, and her rash abated nicely with the scheduled antihistamines. I recommended that the patient avoid morena, see an outpatient machine featheredger and reducer for allergy testing and consultation, and that she carry an EpiPen. 2. Acute syncope. Complete loss of consciousness x2, most likely secondary to anaphylactic reaction and resultant hypotension, the patient received treatment for anaphylaxis and has not experienced any recurrence. An echocardiogram demonstrated no significant valvular abnormalities, and carotid ultrasounds demonstrated patent anterior and posterior circulation. She had no episodes of arrhythmias on telemetry, and she had no recurrent hypotension, with negative orthostatic vital signs. Her only laboratory abnormalities were an elevated prolactin level, white blood cell count, as well as metabolic acidosis, and this does raise the possibility of seizure as her precipitating event, although the patient did not have an abnormal lactic acid level or an abnormal CPK. Explained to the patient that these laboratory abnormalities may have simply been secondary to hypotension and that prolactin levels can very amongst women depending on hormone levels, and that the patient can have her prolactin level rechecked as an outpatient through PCP. 3. Acute metabolic acidosis. Most likely secondary to hypoperfusion in the setting of suspected hypotension anaphylactic reaction, the patient responded well to IV fluids in her serum bicarbonate is 28 at time discharge. DISCHARGE MEDICATIONS: Please see official discharge medication reconciliation sheet in chart , EpiPen as needed, Benadryl as needed, continue other home medications. DISCHARGE INSTRUCTIONS: Please follow up with primary care provider for repeat labs, follow up with allergy physician for allergy testing.
== END 2017-12-16 14:50 | disposition home or self-care (01) ==
LOC: EDBD → EDUNIT# → F2W 13:13
PROVIDERS: ADMIT Internal Medicine; ATTEND Internal Medicine
DX: R55 Syncope and collapse (principal); E87.2 Acidosis; J45.909 Unspecified asthma, uncomplicated; K21.9 Gastro-esophageal reflux disease without esophagitis; Z88.6 Allergy status to analgesic agent
CPT/HCPCS: 70450; 93005; 93306; 93880; 97161; 97165; G0378; G8978; G8979; G8980; G8987; G8988; J0171; J1200; J1650; J2930; 96374

== ENCOUNTER → 2018-04-21 | Outpatient (CLI) | payer OTHER | LOC: FIMAGING 16:05 | PROVIDERS: ATTEND Family Medicine Geriatric Medicine | DX: Z12.31 Encounter for screening mammogram for malignant neoplasm of breast (principal) ==

== ENCOUNTER → 2018-07-23 | Outpatient (CLI) | payer OTHER | LOC: FIMAGING 13:02 | PROVIDERS: ATTEND Orthopaedic Surgery | DX: S72.002A Fracture of unspecified part of neck of left femur, initial encounter for closed fracture (principal); W19.XXXA Unspecified fall, initial encounter; M16.12 Unilateral primary osteoarthritis, left hip ==

== ENCOUNTER → 2019-02-20 | Outpatient (CLI) | payer OTHER ==
[~2019-02-20] MED LIST: DEPO METHYLPREDNISOLONE 40 MG/ML SDV ONE; IOPAMIDOL (ISOVUE 370) 100 ML BTL IV ONE; LIDOCAINE 1% 300 MG/30 ML SDV ONE; ROPIVACAINE HCL 150 MG/30 ML INJ ONE
== END ==
LOC: FIMAGING 10:15
PROVIDERS: ATTEND Orthopaedic Surgery
PROC: 3E0U3BZ Introduction of Anesthetic Agent into Joints, Percutaneous Approach (ICD-10-PCS; principal; 2019-02-20)
DX: M25.551 Pain in right hip (principal)
CPT/HCPCS: 20610; 77002; J1030; J2795; Q9967